=== PATIENT | female | born 1960 | race Caucasian/White ===

== ENCOUNTER 2016-09-27 07:04 | Emergency (ER) | payer BC ==
[~2016-09-27] VITALS: Ht 170.2 cm; Wt 85.3 kg
--- NOTE | ~2016-09-27 | EKG ---
[address] [address] [place] [address] ELECTROCARDIOGRAM REPORT Name: BROOKEPABLOHALIMA Room #: REG [facility]ILITY[facility] [id number] Admission: 09/27/16 Attend Phys: Discharge: Date of : 62 Report #: [id number] THIS REPORT FOR: //name// [facility] ED Test Date: 2016-09-27 Test Time: 07:09:20 Pat Name: HALIMA PROCTOR Department: Room: Gender: F [employer] Design Engineer: : 1960 Requested By: Tracey Ferrell Order Number: [id number] MD: Migue Raines Measurements Intervals [place] Rate: 73 P: -1 [place]: 173 QRS: -41 QRSD: 99 T: 40 QT: 389 QTc: 429 Interpretive Statements Sinus rhythm Inferior infarct, old Baseline wander in lead(s) V4 No previous ECG available for comparison Electronically Signed On 09-27-2016 8:30:46 APPLICATIONS INTERN by Migue Raines [email or web address] <ELECTRONICALLY SIGNED> By: Migue Raines MD 09/27/16 0830 [id number] Migue Raines MD /SHAUNNA
[~2016-09-27 07:04] MED LIST: LEVOTHROID88 MCG PO
[2016-09-27 07:36] LABS: ABSOLUTE NEUTROPHILS 4.4 thou/uL (1.4-8.2); BASOPHILS 0.9 % (0.0-2.0); EOSINOPHILS 0.4 % (0.0-3.0); HEMATOCRIT 45.5 % (37.0-47.0); HEMOGLOBIN 15.4 gm/dL (12.0-15.0); MCH 29.7 pg (26.0-34.0); MCHC 33.7 % (28.0-37.0); MCV 88.1 fL (80.0-100.0); PLATELET COUNT 369 thou/uL (150-400); POLYS 65.7 % (36.0-66.0); RBC 5.17 mil/uL (4.20-5.00); RDW 13.8 % (10.5-14.5); WBC 6.8 thou/uL (4.0-11.0)
[2016-09-27 07:39] LABS: MANUAL DIFF NO
[2016-09-27 07:43] LABS: ANION GAP 7 mmol/L (7-16); BUN 13 mg/dL (7-18); CALCIUM 9.1 mg/dL (8.5-10.1); CHLORIDE 104 mmol/L (98-107); CO2 27 mmol/L (21-32); CREATININE 0.8 mg/dL (0.6-1.3); GLUCOSE 100 mg/dL (70-99); POTASSIUM 3.9 mmol/L (3.5-5.1); SODIUM 138 mmol/L (136-145)
[2016-09-27 07:47] LABS: MAGNESIUM 2.1 mg/dL (1.8-2.4); TROPONIN-I < 0.04 ng/mL (<0.04-0.07)
[2016-09-27 10:06] VITALS: BP 118/73
== END 2016-09-27 10:08 | disposition home or self-care (01) ==
LOC: ER 07:04
PROVIDERS: Emergency Medicine
DX: R00.2 Palpitations (principal); Z98.890 Other specified postprocedural states